=== PATIENT | male | born 1940 | race Caucasian/White ===

== ENCOUNTER → 2018-05-14 | Outpatient (CLI) | payer OTHER, MEDICARE ==
[~2018-05-14] MED LIST: ACCUNEB SO1.25 MG/1 IH; ACCUNEB SO1.25 MG/1 INH; ACETAMINOPHEN325 M1 PO; ANTIFLAMATORY; APAP500 PO; BUPROPION HCL150 M1 PO; CENTRUM SILVER1 EAC4 PO; CLEOCIN HCL300 MG PO; COLACE 100 MG100 MG PO; COUMADIN 3 MG TA3 MG PO; CRESTOR5 MG PO; DEPAKOTE500 MG PO; FLOMAX PO; GLYCOLAX POWDER17 G1 PO; JANUMET 50-5001 EACH PO; JANUVIA100 MG PO; K-DUR 20 MEQ T20 MEQ PO; LASIX 40 MG TAB40 M1 PO; LEVOTHYROXIN0.025 MG PO; LIDODERM 5%1 PATC1; LISINOPRIL10 MG PO; MIRALAX255 GM PO; PREDNISOLONE 5 M5 M1 PO; PREDNISONE 10 M10 M1 PO; PREDNISONE 5 MG5 M1 PO; PREDNISONE50 MG PO; RAPAFLO8 MG PO; SPIRIVA INH; STOOL SOFTENER240 MG PO; SYNTHROID50 MCG PO; TAMSULOSIN HCL0.4 M1 PO; TOPROL XL25 MG PO; TRAMADOL 50 MG50 MG PO; UNICOMPLEX M TA1 TA1 PO; VITAMIN B-12 PO; WELLBUTRIN 100100 MG PO; XALATAN2.5 ML OPHTHALMIC; XOPENEX HFA15 GM INH; ZOFRAN ODT4 MG PO
[2018-05-14 11:08] LABS: CREATININE 1.3 mg/dL (0.7-1.3)
== END ==
LOC: CAT 10:21
PROVIDERS: Internal Medicine Cardiovascular Disease
DX: Z01.812 Encounter for preprocedural laboratory examination (principal); I71.4 Abdominal aortic aneurysm, without rupture; K57.30 Diverticulosis of large intestine without perforation or abscess without bleeding; N40.2 Nodular prostate without lower urinary tract symptoms; M47.815 Spondylosis without myelopathy or radiculopathy, thoracolumbar region; M16.0 Bilateral primary osteoarthritis of hip